=== PATIENT | female | born 1955 | race Caucasian/White ===

== ENCOUNTER 2017-11-05 20:38 | Emergency (ER) | payer MEDICAID ==
--- NOTE | 2017-11-05 20:59 | Emergency Department Record ---
History of Present Illness - General Stated complaint: BLADDER INFEC/BACK/ADOMINAL PAIN,CAN'T URINATE Time Seen by Provider: 11/05/17 20:40 Source: Patient Mode of Arrival: Ambulatory Limitations: No limitations - History of Present Illness Initial comments: 62 yo female presents to ED for evaluation of dysuria, lower abdominal cramping , and urinary retention symptoms that began 3-4 hours ago. Patient denies fevers, chills, or flank pain symptoms, denies history of kidney stones. Patient does reports previous episodes of UTIs with similar symptoms. Patient denies previous abdominal surgery other than , denies change in stools/ loose stools/blood in stools. MD Complaint: Dysuria Onset/Timin -: Hour(s) Severity: Moderate Quality: Cramping Consistency: Constant Improves with: None Worsens with: Urination Patient : No Associated Symptoms: Denies other symptoms - Related Data Home Medications Medication Instructions Recorded Confirmed Last Taken Fluconisone Propionate 0.0005% 1 applic TOP DAILY 11/05/17 11/05/17 11/05/17 Previous Rx's Medication Instructions Recorded Nitrofurantoin Monohyd/M-Cryst 100 mg PO BID #13 capsule 11/05/17 [Macrobid 100 mg Capsule] Allergies Allergy/AdvReac Type Severity Reaction Status Date / Time hydrocodone bitartrate Allergy Mild stomach Verified 11/05/17 22:16 [From Vicodin] issues levofloxacin [From Levaquin] Allergy Mild stomache Verified 11/05/17 22:16 issues tramadol Allergy Mild stomach Verified 11/05/17 22:16 issues clarithromycin [From Biaxin] Allergy ITCHING Verified 11/05/17 22:16 Review of Systems Constitutional: Denies: Chills, Fever, Malaise, Night sweats Eyes: Denies: Eye discharge, Eye pain ENT: Denies: Congestion, Ear pain, Epistaxis Respiratory: Denies: Cough, Dyspnea Cardiovascular: Denies: Chest pain, Dyspnea on exertion Endocrine: Denies: Fatigue, Heat or cold intolerance Gastrointestinal: Reports: Abdominal pain. Denies: Nausea, Vomiting Genitourinary: Reports: Dysuria, Frequency, Retention. Denies: Hematuria, Incontinence Musculoskeletal: Denies: Arthralgia, Back pain, Gout, Joint swelling Skin: Denies: Bruising, Change in color Neurological: Denies: Abnormal gait, Confusion, Headache, Seizure Psychiatric: Denies: Anxiety Hematological/Lymphatic: Denies: Anemia, Blood Clots Past Medical History - SOCIAL HISTORY Smoking Status: Never smoker Drug Use: None - RESPIRATORY Hx Respiratory Disorders: No - CARDIOVASCULAR Hx Cardio Disorders: Yes Hx Hypertension: Yes Comment:: high cholesterol - NEURO Hx Neuro Disorders: No - GI Hx GI Disorders: Yes Hx Reflux: Yes - Hx Genitourinary Disorders: No - ENDOCRINE Hx Endocrine Disorders: No - MUSCULOSKELETAL Hx Musculoskeletal Disorders: No - PSYCH Hx Psych Problems: No - HEMATOLOGY/ONCOLOGY Hx Hematology/Oncology Disorders: No Physical Exam - General General Appearance: Alert, Oriented x3, Cooperative, No acute distress Limitations: No limitations - Head Head exam: Atraumatic, Normocephalic, Normal inspection Head exam detail: negative: Abrasion, Contusion, Cuevas's sign, General tenderness, Hematoma, Laceration - Eye Eye exam: Normal appearance. negative: Conjunctival injection, Periorbital swelling, Periorbital tenderness, Scleral icterus - ENT Ear exam: negative: Auricular hematoma, Auricular trauma Nasal Exam: negative: Active bleeding, Discharge, Dried blood, Foreign body Mouth exam: negative: Drooling, Laceration, Muffled voice, Tongue elevation - Neck Neck exam: Normal inspection. negative: Meningismus, Tenderness - Respiratory Respiratory exam: Normal lung sounds bilaterally. negative: Rales, Respiratory distress, Rhonchi, Stridor - Cardiovascular Cardiovascular Exam: Regular rate, Normal rhythm, Normal heart sounds - GI/Abdominal GI/Abdominal exam: Soft. negative: Rebound, Rigid, Tenderness - Rectal Rectal exam: Deferred - exam: Deferred - Extremities Extremities exam: Normal inspection. negative: Calf tenderness, Pedal edema, Tenderness - Back Back exam: Denies: CVA tenderness (R), CVA tenderness (L) - Neurological Neurological exam: Alert, Normal gait, Oriented X3 - Psychiatric Psychiatric exam: Normal affect, Normal mood - Skin Skin exam: Normal color. negative: Abrasion Type of lesion: negative: abrasion Course Vital Signs 11/05/17 20:51 Temperature 98.1 F Pulse Rate [ 91 H Pulse Ox Probe] Respiratory 16 Rate Blood Pressure 134/88 [Left Arm] Pulse Ox 97 - Reevaluation(s) Reevaluation #1: 11/05/17 22:09 UA reviewed: 0-2 RBCs 6-10 WBCs Few bacteria Patient was updated on UA results, will treat for early UTI as the patient is symptomatic with instructions to return for any worsening of her symptoms. Disposition Disposition: Discharge Clinical Impression: UTI (urinary tract infection) Qualifiers: Urinary tract infection type: acute cystitis Hematuria presence: without hematuria Qualified Code(s): N30.00 - Acute cystitis without hematuria Disposition: Home, Self-Care Condition: (2) Stable Instructions: Urinary Tract Infection in Women (ED) Additional Instructions: Return to ED if your symptoms worsen or if you have any concerns. Macrobid as directed. Follow-up with your family doctor in 3-5 days as directed. Prescriptions: Nitrofurantoin Monohyd/M-Cryst [Macrobid 100 mg Capsule] 100 mg PO BID #13 capsule Forms: Patient Portal Access Time of Disposition: 22:12 Quality - Quality Measures Quality Measures: N/A - Blood Pressure Screening Does Patient Have Any of the Following: No Blood Pressure Classification: Pre-Hypertensive BP Reading Systolic Measurement: 137 Diastolic Measurement: 77 Screening for High Blood Pressure: < Pre-Hypertensive BP, F/U Documented > [ [id number]] Pre-Hypertensive Follow-up Interventions: Referral to alternative/primary care provider.
[2017-11-05 21:58] LABS: URINE APPEARANCE CLEAR; URINE BILIRUBIN NEGATIVE (NEGATIVE); URINE BLOOD MODERATE (NEGATIVE); URINE COLOR YELLOW; URINE GLUCOSE (UA) NEGATIVE (NEGATIVE); URINE KETONE NEGATIVE (NEGATIVE); URINE LEUKOCYTE ESTERASE TRACE (NEGATIVE); URINE NITRITE NEGATIVE (NEGATIVE); URINE PROTEIN NEGATIVE (NEGATIVE); URINE UROBILINOGEN 0.2 E.U./dL (0.20 - 1.00)
[2017-11-05 22:04] LABS: URINE BACTERIA FEW; URINE RBC 0 - 2 (NONE SEEN)
[2017-11-05] MEDS ORDERED: NITROFURANTOIN MONO 100 MG CAPSULE PO ONE (22:12)
== END 2017-11-05 22:21 | disposition home or self-care (01) ==
LOC: ER 20:38
DX: N30.01 Acute cystitis with hematuria (principal)
CPT/HCPCS: 81001; 99282